=== PATIENT | female | born 1995 | race Hispanic/Latino ===

== ENCOUNTER 2016-10-26 17:34 | Emergency (ER) | payer SELFPAY ==
[2016-10-26] MEDS ORDERED: NACL 0.9% 1000 ML 1,000 ML IV ONE (18:24)
[2016-10-26] MEDS ORDERED: SUBLIMAZE IV ONE (18:24)
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
[2016-10-26 19:08] LABS: Basophils % (Auto) 0.1 % (0.0-1.8); Eosinophils % (Auto) 0.1 % (0.0-4.3); Hematocrit 40.2 % (30.3-42.9); Hemoglobin 13.3 gm/dl (10.1-14.3); Mean Corpuscular HGB Conc 33 % (30-34); Mean Corpuscular Hemoglobin 31 pg (28-32); Mean Corpuscular Volume 93 fl (79-97); Platelet Count 211 K/mm3 (140-440); Red Blood Count 4.34 M/mm3 (3.65-5.03); White Blood Count 17.5 K/mm3 (4.5-11.0)
[2016-10-26 19:11] LABS: Alanine Aminotransferase 43 units/L (7-56); Albumin 4.9 g/dL (3.9-5); Albumin/Globulin Ratio 1.8 %; Alkaline Phosphatase 64 units/L (35-129); Anion Gap 20 mmol/L; BUN/Creatinine Ratio 23.33; Blood Urea Nitrogen 14 mg/dL (7-17); Calcium 9.4 mg/dL (8.4-10.2); Carbon Dioxide 23 mmol/L (22-30); Chloride 101.2 mmol/L (98-107); Glucose 90 mg/dL (65-100); Potassium 3.4 mmol/L (3.6-5.0); Sodium 141 mmol/L (137-145); Total Protein 7.6 g/dL (6.3-8.2)
[2016-10-26 19:17] LABS: INR 1.04 (0.87-1.13)
[2016-10-26 19:18] LABS: Partial Thromboplastin Time 25.2 Sec. (24.2-36.6)
[2016-10-26 20:24] LABS: Bilirubin,Urine NEG (Negative); Blood,Urine NEG (Negative); Ketones,Urine TR mg/dL (Negative); Leukocyte Esterase,Urine NEG (Negative); Mucus,Urine FEW /HPF; Nitrite,Urine NEG (Negative); Protein,Urine <15 mg/dL mg/dL (Negative); Urobilinogen,Urine < 2.0 mg/dL (<2.0)
[2016-10-26] MEDS ORDERED: HYDROGEN PEROXIDE ONE (20:37)
[2016-10-26] MEDS ORDERED: NACL 0.9% 500 ML IR ONE (20:40)
[2016-10-26] MEDS ORDERED: XYLOCAINE 1% 20 mL ONE (20:48)
[2016-10-26] MEDS ORDERED: NACL 0.9% IR ONE (20:54)
[2016-10-26] MEDS ORDERED: XYLOCAINE 1% 20 mL INFILTRATI ONE (20:55)
[2016-10-26] MEDS ORDERED: HYDROGEN PEROXIDE TP ONE (20:55)
[2016-10-26] MEDS ORDERED: TRIPLE ANTIBIOTIC TP ONE (21:28)
[2016-10-26] MEDS ORDERED: NACL ONE (21:53)
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
[2016-10-27 01:37] VITALS: BP 112/70
--- NOTE | 2016-10-27 07:25 | XRay Report ---
RIGHT WRIST, 4 VIEWS: History: wrist pain, injury. Routine views demonstrate the carpal bones to be well mineralized with well preserved bony mineralization and interosseous joint spaces. The carpal and adjacent articular bones have normal contours. The surrounding soft tissues are unremarkable. IMPRESSION: Unremarkable right wrist.
--- NOTE | 2016-10-27 07:25 | XRay Report ---
RIGHT HAND, 3 views: History: Right hand pain. The bony architecture is intact. Bony alignment is normal. No soft tissue abnormalities are seen. The joint spaces appear preserved. IMPRESSION: Normal right hand.
--- NOTE | 2016-10-27 07:26 | XRay Report ---
RIGHT ELBOW, 2 views: History: Right elbow pain. The bony architecture is intact without evidence of fracture or dislocation. No significant soft tissue abnormality is seen. IMPRESSION: Normal right elbow.
--- NOTE | 2016-10-27 07:26 | XRay Report ---
RIGHT FOREARM: History: Right forearm pain. AP and lateral views of the forearm demonstrate normal mineralization and contours for this patient's age. No destructive changes are noted and the adjacent soft tissues are normal. IMPRESSION: Normal right forearm.
--- NOTE | 2016-10-27 13:32 | XRay Report ---
RIGHT HIP RADIOGRAPHS INDICATION: Hip pain. COMPARISON: None similar. FINDINGS: An AP pelvic radiograph with frog-leg projection of the right hip demonstrate intact articulation. Imaged bilateral SI and hip joints appear intact. Nonobstructive bowel gas pattern with constipation not excluded. CONCLUSION: No acute radiographic abnormality. Please note that this exam is now presented to me for interpretation. Thank you for the opportunity to participate in this patient's care.
== END 2016-10-27 00:45 | disposition home or self-care (01) ==
LOC: ED 17:34
DX: S41.111A Laceration without foreign body of right upper arm, initial encounter (principal); S01.01XA Laceration without foreign body of scalp, initial encounter; S80.11XA Contusion of right lower leg, initial encounter; V73.9XXA Unspecified occupant of bus injured in collision with car, pick-up truck or van in traffic accident, initial encounter; Y93.89 Activity, other specified; Y99.8 Other external cause status; Y92.89 Other specified places as the place of occurrence of the external cause
CPT/HCPCS: 12004; 36415; 70450; 71260; 72125; 73070; 73090; 73110; 73130; 73502; 74177; 80053; 81001; 84703; 85025; 85610; 85730; 86850; 86900; 86901; 93005; 93010; 96360; 96361; 99285; J7030; Q9967; A6250